=== PATIENT | male | born 1995 | race African-American/Black ===

== ENCOUNTER 2020-10-03 18:40 | Emergency (ER) | payer SELFPAY ==
[~2020-10-03] VITALS: Ht 180.3 cm; Wt 86.0 kg
--- NOTE | 2020-10-03 21:44 | RAD ---
Exam: Chest one view INDICATION: Altered mental status TECHNIQUE: Frontal view of the chest Comparisons: None FINDINGS: The cardiomediastinal silhouette and pulmonary vessels are within normal limits. The lung and pleural spaces are clear. IMPRESSION: No acute cardiopulmonary process. Electronically signed by: Attila Wyatt MD (10/03/2020 9:42 PM) EMILY
--- NOTE | 2020-10-03 21:57 | RAD ---
CT head without contrast: Reason for examination: Unresponsive. Altered mental status. Helical images were obtained through the brain. No contrast was administered. Exposure: One or more of the following individualized dose reduction techniques were utilized for thi s examination: 1. Automated exposure control 2. Adjustment of the mA and/or kV according to patient size 3. Use of iterative reconstruction technique. Ventricular systems are symmetric and not dilated. No midline shift is seen. There is no evidence of intracranial hemorrhage, infarct, mass or edema. No abnormalities are seen at the orbits. The paranas al sinuses and mastoid air cells are clear. No acute abnormality seen in the skull. IMPRESSION: No acute intracranial abnormality evident. Electronically signed by: Oksana Padilla MD (10/03/2020 9:55 PM) DAR
--- NOTE | 2020-10-03 22:20 | PHYS DOC ---
Past Medical History Additional Past Medical Histor: MILLER Past Surgical History: No Surgical History Additional Past Surgical Histo: MILLER Smoking Status: Unknown if ever smoked Alcohol Use: Heavy General Adult EDM: Chief Complaint: ALCOHOL INTOXICATION HPI: HPI: 24 yo M presents to the ed bibems after reported patient was unresponsive at a car, received IV Narcan. Pain patient with known history of alcohol intoxication and admission. History and review of systems limited due to patient's intoxication on ED arrival. EMS reported no known history of trauma. Review of Systems: Review of Systems: Review of systems unobtainable Heart Score: C/O Chest Pain: No Risk Factors: Risk Factors: DM, Current or recent (<one month) smoker, HTN, HLP, family history of CAD, obesity. Risk Scores: Score 0 - 3: 2.5% MACE over next 6 weeks - Discharge Home Score 4 - 6: 20.3% MACE over next 6 weeks - Admit for Clinical Observation Score 7 - 10: 72.7% MACE over next 6 weeks - Early Invasive Strategies Allergies: Allergies: Allergies Coded Allergies Type Severity Reaction Last Updated Verified No Known Drug Allergies 10/03/20 No Physical Exam: PE: Constitutional: Well developed, well nourished, no acute distress, non-toxic appearance, winces with supraorbital pressure or sternal rub HENT: Normocephalic, atraumatic, no signs of trauma Eyes: PERRLA, EOMI, conjunctiva normal, no discharge. Neck: Normal range of motion, supple, no nuchal rigidity Cardiovascular: S1/2 present, regular rhythm Lungs & Thorax: Speaking in full sentences, bilateral equal chest rise, no tachypnea or increased work of breathing Abdomen: soft, no tenderness, Skin: Warm, dry, no erythema, no rash. [] Back: No midline step-offs or tenderness, no CVA tenderness. [] Extremities: No tenderness, no cyanosis, no lower extremity edema Neurologic: E3M5V2 = GCS10, , no focal deficits noted. [] Psychologic: Normal affect, normal mood Current Patient Data: Vital Signs: Vital Signs Date Time Temp Pulse Resp B/P (MAP) Pulse Ox O2 Delivery O2 Flow Rate FiO2 10/03/20 19:25 97.8 84 20 135/60 96 Room Air 97.8 EKG: EKG: Sinus rhythm 77 bpm, no axis deviation, normal intervals, no T wave inversions, no ST elevations or ST depressions, no active chest pain Radiology/Procedures: Radiology/Procedures: []IMAGING REPORT Signed PATIENT: HALLIE MELENDEZ ACCOUNT: [id number] : 1995 LOCATION: ER AGE: 24 SEX: M EXAM STATUS: REG ER ORD. PHYSICIAN: TRISTEN PELAYO DO REASON: unresponsive/ams PROCEDURE: CT HEAD WO CONTRAST CT head without contrast: Reason for examination: Unresponsive. Altered mental status. Helical images were obtained through the brain. No contrast was administered. Exposure: One or more of the following individualized dose reduction techniques were utilized for this examination: 1. Automated exposure control 2. Adjustment of the mA and/or kV according to patient size 3. Use of iterative reconstruction technique. Ventricular systems are symmetric and not dilated. No midline shift is seen. There is no evidence of intracranial hemorrhage, infarct, mass or edema. No abnormalities are seen at the orbits. The paranasal sinuses and mastoid air cells are clear. No acute abnormality seen in the skull. IMPRESSION: No acute intracranial abnormality evident. Electronically signed by: Emily Estrada MD (10/03/2020 9:55 PM) [facility] DICTATED and SIGNED BY: EMILY ESTRADA MD DATE: 10/03/[id number] 0 IMAGING REPORT Signed PATIENT: HALLIE MELENDEZ ACCOUNT: [id number] : 1995 LOCATION: ER AGE: 24 SEX: M EXAM STATUS: REG ER ORD. PHYSICIAN: TRISTEN PELAYO DO REASON: ams PROCEDURE: CHEST AP ONLY Exam: Chest one view INDICATION: Altered mental status TECHNIQUE: Frontal view of the chest Comparisons: None FINDINGS: The cardiomediastinal silhouette and pulmonary vessels are within normal limits. The lung and pleural spaces are clear. IMPRESSION: No acute cardiopulmonary process. Electronically signed by: Attila Torrez MD (10/03/2020 9:42 PM) [facility] DICTATED and SIGNED BY: ATTILA TORREZ MD DATE: 10/03/[id number] 0 Course & Med Decision Making: Course & Med Decision Making Pertinent Labs and Imaging studies reviewed. (See chart for details) Upon sober reevaluation, patient awake/alert with no prior recall of events, gcs15. Denies any active pain. Steady gait. Denies any suicidal homicidal ideations. Reports no other known coingestions. Has a safe place to return home to. Patient is clinically sober. Will discharge home with strict ED return precautions were given for head injury, homicidal or suicidal thoughts. Encouraged urgent outpatient follow-up with PMD and [facility] for substance abuse. Life-threatening processes were considered but are low suspicion at this time, given history, physical exam and ED workup. Pt was educated on all prescription medications and adverse effects. All patient's questions were answered and pt was stable at time of discharge. Life/limb-threatening differential includes but is not limited to, end organ damage/sepsis, trauma/abuse/neglect, neurologic deficit, alcohol/drug ingestion, toxidrome, suicidal/homicidal ideations plans or attempts, psychosis or mental illness resulting in self neglect and inability to care for self. I have spoken with the patient and/or caregivers. I explained the patient's condition, diagnoses and treatment plan based on the information available to me at this time. I have answered the patient and/or caregiver's questions and addressed any concerns. The patient and/or caregivers have a good understanding of patient's diagnosis, condition and treatment plan as can be expected at this point. Vital signs have been stable. Patient's condition is stable and appropriate for discharge from the emergency department. Patient will pursue further outpatient evaluation with primary care physician or other designated or consulting physician as outlined in the discharge instructions. The patient and/or caregivers are agreeable to this plan of care and follow-up instructions have been explained in detail. The patient and/or caregivers have received these instructions in written form and have expressed an understanding of the discharge instructions. The patient and/or caregivers are aware that any significant change of condition or worsening of symptoms should prompt immediate return to this or the closest emergency department or call to 911. Licha Disclaimer: Licha Disclaimer: This electronic medical record was generated, in whole or in part, using a voice recognition dictation system. Departure Departure Impression: Primary Impression: Alcohol intoxication Disposition: HOME / SELF CARE / HOMELESS Condition: STABLE Referrals: NO PCP (PCP) Follow-up with your primary care physician in 24 to 48 hours OR FOLLOW UP WITH FAMILY MEDICINE: [address], [address] [place] [address] Patient Instructions: Alcohol Intoxication Additional Instructions: [facility]. AND FOR SUBSTANCE ABUSE MANAGEMENT [address] [place] [address] 24-hour crisis line: [phone] EMERGENCY DEPARTMENT GENERAL DISCHARGE INSTRUCTIONS Thank you for coming to [facility] Emergency Department (ED) today and trusting us with you care. We trust that you had a positive experience in our Emergency Department. If you wish to speak to the department management, you may call the Director at [phone]. YOUR FOLLOW UP INSTRUCTIONS ARE FOLLOWS: 1. Do you have a private Doctor? If you do not have a private doctor, please ask for a resource list of physicians or clinics that may be able to assist you with follow up care. ADDITIONAL INSTRUCTIONS AND INFORMATION: 1. Your care today has been supervised by a physician who is specially trained in emergency care. Many problems require more than one evaluation for a complete diagnosis and treatment. We recommend that you schedule your follow up appointment as recomm ended to ensure complete treatment of you illness or injury. If you are unable to obtain follow up care and continue to have a problem, or if your condition worsens, we recommend that you return to the ED. 2. We are not able to safely determine your condition over the phone nor are we able to give sound medical advice over the phone. For these safety reasons, if you call for medical advice we will ask you to come to the ED for further evaluation. 3. If you have any questions regarding these discharge instructions please call the ED at [phone]. SAFETY INFORMATION: In the interest of safety, wellness, and injury prevention; we encourage you to wear your sealbelt, if you smoke; quite smoking, and we encourage family to use a protective helmet for bicycling and other sporting events that present an increased risk for head injury. IF YOUR SYMPTOMS WORSEN OR NEW SYMPTOMS DEVELOP, OR YOU HAVE CONCERNS ABOUT YOUR CONDITION; OR IF YOUR CONDITION WORSENS WHILE YOU ARE WAITING FOR YOUR FOLLOW UP APPOINTMENT; EITHER CONTACT YOUR PRIMARY CARE DOCTOR, THE PHYSICIAN WHOSE NAME AND NUMBER YOU WERE GIVEN, OR RETURN TO THE ED IMMEDIATELY. TRISTEN STEINBERG DO Oct 03, 2020 22:20
[2020-10-03 22:49] LABS: BASO % 1 % (0-3); EOS # 0.3 x10^3/uL (0.0-0.7); EOS % 6 % (0-3); HEMATOCRIT 45.3 % (39.0-53.0); HEMOGLOBIN 15.3 g/dL (13.0-17.5); LYMPH # 2.9 x10^3/uL (1.0-4.8); LYMPH % 52 % (24-48); MEAN CORPUSCULAR HEMOGLOBIN 30 pg (25-35); MEAN CORPUSCULAR HGB CONC 34 g/dL (31-37); MEAN CORPUSCULAR VOLUME 88 fL (79-100); MONO # 0.3 x10^3/uL (0.0-1.1); MONO % 5 % (0-9); NEUT % 36 % (31-73); PLATELET COUNT 241 x10^3/uL (140-400); RED BLOOD COUNT 5.16 x10^6/uL (4.30-5.70); RED CELL DISTRIBUTION WIDTH 12.7 % (11.5-14.5); WHITE BLOOD COUNT 5.6 x10^3/uL (4.0-11.0)
[2020-10-03 22:57] LABS: CALCIUM 8.5 mg/dL (8.5-10.1); CREATININE 0.9 mg/dL (0.7-1.3); GFR 126.5; POTASSIUM 3.8 mmol/L (3.5-5.1)
[2020-10-03] MEDS ORDERED: IV NORMAL SALINE 1000ML BAG 1,000 ML IV ONE (23:15)
[2020-10-04 00:30] VITALS: BP 115/59
--- NOTE | 2020-10-04 04:56 | EKG ---
[facility] [address] [place] [address] Test Date: 2020-10-03 Test Time: 21:22:14 Pat Name: HALLIE MELENDEZ Department: Room: Gender: M Survey Questionnaire Designer: : 1995 Requested By: TRISTEN PELAYO Order Number: [id number] Reading MD: Measurements Intervals [place] Rate: 77 P: 48 OK: 168 QRS: 54 QRSD: 98 T: 28 QT: 370 QTc: 420 Interpretive Statements SINUS RHYTHM NON SPECIFIC ST-T ABNORMALITY (ELEVATION) OTHERWISE NORMAL ECG RI6.02 No previous ECG available for comparison
== END 2020-10-04 00:49 | disposition home or self-care (01) ==
LOC: ER 18:40
DX: F10.129 Alcohol abuse with intoxication, unspecified (principal); Y90.8 Blood alcohol level of 240 mg/100 ml or more; R41.82 Altered mental status, unspecified; R07.89 Other chest pain
CPT/HCPCS: 36415; 70450; 71045; 80048; 84484; 85025; 93005; 96360; 99285; G0480; J7030